=== PATIENT | female | born 1950 | race Caucasian/White ===

== ENCOUNTER → 2017-02-09 | Outpatient (CLI) | payer MEDICARE ==
[~2017-02-09] MED LIST: ACHYD1T PO; ALLP100T PO; CALC-80 PO; DOCU100T7 PO; FA/M1TAB29 PO; FISH1CAP15 PO; LISI20TA PO; LVT.088T PO; NAPR-710 PO; NAPR220T29 PO; OXYB5TAB9 PO; PRAV40TA PO; SPIR25TA3 PO; TRIM100T7 PO
== END ==
DX: Z12.31 Encounter for screening mammogram for malignant neoplasm of breast (principal)

== ENCOUNTER → 2017-10-31 | Outpatient (CLI) | payer MEDICARE ==
--- NOTE | 2017-10-31 14:28 | Diagnostic Imaging Report ---
EXAMINATION: Left hip at 1012h. INDICATION: Hip pain AP and lateral views were obtained. There are no prior studies available for comparison. There is no fracture, dislocation or acute bony abnormality evident. There is mild degenerative disease of the hip joint. The soft tissues are unremarkable. IMPRESSION: There is no evidence for an acute bony abnormality. Dictated by: Dictated on workstation # [id number]
--- NOTE | 2017-10-31 18:34 | Diagnostic Imaging Report ---
EXAMINATION: Lumbar spine. INDICATION: Left hip pain. AP, lateral, and spot lateral views were obtained. There are no prior studies available for comparison. FINDINGS: The lateral view does show a grade 1 spondylolisthesis of L4 with respect to L5. There is also mild narrowing of the disc space at L4-5. The alignment of the other vertebral bodies is within normal limits. The other intervertebral spaces are also fairly well maintained. There is no fracture or acute bony abnormality identified. There is no sign of a paraspinal mass. There is mild symmetrical sclerosis of the sacroiliac joints. IMPRESSION: 1. There is no evidence for an acute bony abnormality. 2. There is a grade 1 spondylolisthesis of L4 with respect to L5, and there is moderate narrowing of the disc space at the L4-5 level. 3. If there is clinical concern regarding spinal stenosis or nerve root encroachment, then MRI would be recommended for further evaluation. Dictated by: Dictated on workstation # [id number]
== END ==
LOC: RAD 09:38
PROVIDERS: ATTEND Family Medicine
DX: M48.061 Spinal stenosis, lumbar region without neurogenic claudication (principal); M43.16 Spondylolisthesis, lumbar region
CPT/HCPCS: 72100; 73502

== ENCOUNTER → 2017-11-28 | Outpatient (CLI) | payer MEDICARE ==
--- NOTE | 2017-11-28 17:24 | Diagnostic Imaging Report ---
PROCEDURE: MRI lumbar spine. TECHNIQUE: Multiplanar, multisequence MRI of the lumbar spine was performed without contrast. INDICATION: Left hip pain and low back pain. No prior MRI studies are available for comparison. FINDINGS: Curvature of the lumbar spine is normal. There is mild anterolisthesis of L4 on L5. The vertebral body heights are maintained. No acute compression fracture is seen. No geographic marrow lesion is identified. There is generalized degenerative disc disease and desiccation. The conus is unremarkable at the L1 level. L1-L2: No central canal or neuroforaminal stenosis is identified. L2-L3: Minimal ligamentous thickening is present but no central canal or neuroforaminal stenosis is identified. L3-L4: Minimal ligamentous thickening and facet changes are noted but no central canal or neuroforamina stenosis is identified. L4-L5: There are hypertrophic facet changes. There is mild broad-based disc/osteophyte complex flattening the ventral thecal sac. Central canal is widely patent. Neuroforamina are patent. L5-S1: There is a wide based left posterolateral disc bulge. This does produce significant narrowing of the left neuroforamen and likely impinging upon the left L5 nerve root. Very mild narrowing of the right neuroforamen by broad-based disc bulging is seen. The central canal is patent. Paraspinous tissues are unremarkable. IMPRESSION: Multilevel lumbar spondylosis described level by level above. There is a left far lateral broad-based disc bulge resulting in left neuroforaminal stenosis. No central canal stenosis or evidence of acute compression fracture is identified. Dictated by: Dictated on workstation # [id number]
== END ==
LOC: RAD 15:47
PROVIDERS: ATTEND Physician Assistant
DX: M48.07 Spinal stenosis, lumbosacral region (principal); M51.27 Other intervertebral disc displacement, lumbosacral region; M51.36 Other intervertebral disc degeneration, lumbar region; M47.816 Spondylosis without myelopathy or radiculopathy, lumbar region; M43.16 Spondylolisthesis, lumbar region
CPT/HCPCS: 72148

== ENCOUNTER → 2018-03-16 | Outpatient (CLI) | payer MEDICARE ==
--- NOTE | 2018-03-19 09:02 | Diagnostic Imaging Report ---
Indication: Routine screening. Comparison is made to prior mammogram of 02/09/2017 and 10/22/2015. 2-D and 3-D bilateral screening mammography was performed with CAD. Both breasts remain heterogeneously dense, limiting the sensitivity of mammography. Benign nodules in both breasts are again noted and appear stable. No new mass or malignant-appearing micro-ossifications are seen. There are benign calcifications present. The axilla is unremarkable. Impression: BI-RADS category 2 No mammographic features suspicious for malignancy are identified. ACR BI-RADS Category 2: Benign findings. Result letter will be mailed to the patient. Note: At least 10% of breast cancer is not imaged by mammography. Dictated by: Dictated on workstation # [id number]
== END ==
LOC: RAD 11:18
PROVIDERS: ATTEND Family Medicine
DX: Z12.31 Encounter for screening mammogram for malignant neoplasm of breast (principal)
CPT/HCPCS: 77067

== ENCOUNTER → 2021-06-18 | Outpatient (CLI) | payer MEDICARE ==
--- NOTE | 2021-06-18 16:24 | Diagnostic Imaging Report ---
INDICATION: Screening. EXAMINATION: Digital mammogram bilateral screening. 3D tomographic images were obtained and reviewed. The current study was also evaluated with a Computer Aided Detection (CAD) system. COMPARISON: This study was compared to the prior exams of 04/01/2020, 03/22/2019 and 03/16/2018. At this time there are no current complaints. FINDINGS: The fibroglandular tissue in both breasts is heterogeneously dense. This does limit the sensitivity of this exam. As noted on the prior exam there are multiple small rounded asymmetries in both breasts, particularly the left breast. These findings seem stable when compared to the prior exam and consequently most likely benign. On the SVC view there is a suggestion of an area of architectural distortion in the lateral aspect of the left breast at posterior depth. This finding is not as conspicuous on the tomographic images and cannot be identified with certainty on the MLO view although it may be in the superior half of the breast. By history, patient has had a previous cyst aspiration of the left breast and it is possible that this finding could be secondary to scar formation from that procedure. Even so, the possibility of an occult malignancy should also be considered. I would recommend that a compression views of this area be obtained in the XCC projection for further study as well as a true lateral view. Ultrasound of the left breast should also be performed. The right breast is unchanged. IMPRESSION: Additional mammographic views and ultrasound of the left breast would be recommended for further study. ACR BI-RADS Category 0: Incomplete. (Needs additional imaging evaluation). Result letter will be mailed to the patient. Note: At least 10% of breast cancer is not imaged by mammography. Dictated on workstation # [id number]
== END ==
LOC: RAD 09:45
PROVIDERS: ATTEND Family Medicine
DX: Z12.31 Encounter for screening mammogram for malignant neoplasm of breast (principal)
CPT/HCPCS: 77063; 77067

== ENCOUNTER → 2021-07-01 | Outpatient (CLI) | payer MEDICARE ==
--- NOTE | 2021-07-01 10:00 | Diagnostic Imaging Report ---
INDICATION: Questionable architectural distortion of the left breast. Patient presents for additional views. COMPARISON is made with screening study from 06/18/2021. Unilateral left 2-D and 3-D diagnostic mammography was performed. This includes spot compression exaggerated CC as well as ML views. A conventional 90 degree lateral view was also performed. There is residual density in the upper outer left breast. No definite architectural distortion is identified with compression views but evaluation of this area with ultrasound is recommended. No suspicious calcifications are seen. IMPRESSION: BI-RADS Category 0 There is residual density in the upper outer left breast at posterior depth. Further evaluation with ultrasound is recommended and will be performed today. ACR BI-RADS Category 0: Incomplete. (Needs additional imaging evaluation). Result letter will be mailed to the patient. Note: At least 10% of breast cancer is not imaged by mammography. Dictated by: Dictated on workstation # [id number]
--- NOTE | 2021-07-01 15:57 | Diagnostic Imaging Report ---
INDICATION: Left breast questionable architectural distortion. CORRELATION is made with diagnostic mammogram earlier this same day and screening mammogram from 06/18/2021. Sonographic interrogation of the upper outer left breast was performed. There is a simple cyst at the 1:00-2:00 location in the left breast 6 cm from the nipple measuring 5 mm. There is a cluster of cysts at the 1:00 location, 8 cm from the nipple in aggregate measuring 5 mm x 6 mm x 4 mm. No concerning sonographic findings are seen. There is no mass to account for questionable architectural distortion noted mammographically. IMPRESSION: BI-RADS Category 2 No concerning sonographic findings are seen. The patient may return to routine annual screening mammography. ACR BI-RADS Category 2: Benign findings. Result letter will be mailed to the patient. Note: At least 10% of breast cancer is not imaged by mammography. Dictated by: Dictated on workstation # [id number]
== END ==
LOC: RAD 09:34
PROVIDERS: ATTEND Family Medicine
DX: R92.8 Other abnormal and inconclusive findings on diagnostic imaging of breast (principal)
CPT/HCPCS: 76642; 77065; G0279

== ENCOUNTER → 2021-11-04 | Outpatient (CLI) | payer MEDICARE ==
--- NOTE | 2021-11-04 11:04 | Diagnostic Imaging Report ---
EXAMINATION: Right humerus radiographs, 2 views, 3 images. COMPARISON: None. HISTORY: 71-year-old female, fall recently. Right shoulder and humerus pain. FINDINGS: There is irregularity of the contour of the posterior aspect of the humeral head on image 3 which is not seen on the dedicated right shoulder radiograph series. This potentially could reflect a mildly displaced fracture fragment. This appears likely to be osseous rather than calcific in attenuation. There is no otherwise identified potential acute fracture. IMPRESSION: Irregularity of the posterior aspect of the humeral head, not well seen on dedicated right shoulder radiographs. This potentially could reflect a mildly displaced fracture. CT of the right shoulder without contrast is recommended for further assessment. Dictated by: Dictated on workstation # [id number]
--- NOTE | 2021-11-04 11:05 | Diagnostic Imaging Report ---
EXAMINATION: Right shoulder radiographs, 3 views. COMPARISON: None. HISTORY: 71-year-old female, fall recently. Right shoulder and humerus pain. FINDINGS: The humeral head is normally positioned relative to the glenoid. The glenohumeral joint space appears well-maintained. There is no identified osteophyte formation or subchondral cystic change. The acromioclavicular joint is normally aligned. There are no acromioclavicular degenerative changes. Not well seen on this exam and better demonstrated on same-day radiographs of the right humerus, there does appear to be irregularity of the margin of the posterior aspect of the humeral head which may reflect a mildly displaced fracture. IMPRESSION: Findings questionable for a mildly displaced fracture of the posterior aspect of the humeral head, better seen on same day right humerus radiographs. CT right shoulder without contrast is recommended for further assessment. Dictated by: Dictated on workstation # [id number]
== END ==
LOC: RAD 09:41
PROVIDERS: ATTEND Family Medicine
DX: M25.511 Pain in right shoulder (principal); W19.XXXA Unspecified fall, initial encounter
CPT/HCPCS: 73030; 73060

== ENCOUNTER → 2021-11-10 | Outpatient (CLI) | payer MEDICARE ==
--- NOTE | 2021-11-10 13:00 | Diagnostic Imaging Report ---
PROCEDURE: CT right upper extremity without contrast. TECHNIQUE: Multiple contiguous axial images were obtained through the right upper extremity without the use of intravenous contrast. Sagittal and coronal reformations were then performed. Auto Exposure Controls were utilized during the CT exam to meet ALARA standards for radiation dose reduction. INDICATION: Fall with pain in the right shoulder. FINDINGS: Glenohumeral and acromioclavicular alignment are normal. There are glenohumeral joint degenerative changes with joint space narrowing. There are subchondral cysts within the glenoid. There is an acute-appearing fracture involving the proximal humerus. This appears to involve the greater tuberosity. The neck of the humerus is intact. No other fractures are identified. The scapula is intact. IMPRESSION: Greater tuberosity fracture of the proximal right humerus. No other significant abnormality is identified. Dictated by: Dictated on workstation # [id number]
== END ==
LOC: RAD 11:45
PROVIDERS: ATTEND Family Medicine
DX: S42.201A Unspecified fracture of upper end of right humerus, initial encounter for closed fracture (principal); W19.XXXA Unspecified fall, initial encounter
CPT/HCPCS: 73200

== ENCOUNTER → 2022-01-18 | Outpatient (RCR) | payer MEDICARE | END | disposition home or self-care (01) | PROVIDERS: ATTEND Nurse Practitioner Family | DX: S42.254D Nondisplaced fracture of greater tuberosity of right humerus, subsequent encounter for fracture with routine healing (principal); I10 Essential (primary) hypertension; X58.XXXD Exposure to other specified factors, subsequent encounter ==

== ENCOUNTER → 2022-02-17 | Outpatient (RCR) | payer MEDICARE | END | disposition home or self-care (01) | PROVIDERS: ATTEND Nurse Practitioner Family | DX: S42.254D Nondisplaced fracture of greater tuberosity of right humerus, subsequent encounter for fracture with routine healing (principal); I10 Essential (primary) hypertension; X58.XXXD Exposure to other specified factors, subsequent encounter ==

== ENCOUNTER 2022-03-18 09:04 | Outpatient (RCR) | payer MEDICARE | END 2022-03-20 | disposition home or self-care (01) | PROVIDERS: ATTEND Nurse Practitioner Family | DX: S42.254D Nondisplaced fracture of greater tuberosity of right humerus, subsequent encounter for fracture with routine healing (principal); I10 Essential (primary) hypertension; X58.XXXD Exposure to other specified factors, subsequent encounter ==

== ENCOUNTER 2022-04-06 09:25 | Outpatient (RCR) | payer MEDICARE | END 2022-04-20 | disposition home or self-care (01) | PROVIDERS: ATTEND Nurse Practitioner Family | DX: S42.254D Nondisplaced fracture of greater tuberosity of right humerus, subsequent encounter for fracture with routine healing (principal); I10 Essential (primary) hypertension; X58.XXXD Exposure to other specified factors, subsequent encounter ==

== ENCOUNTER → 2022-07-04 | Outpatient (CLI) | payer MEDICARE ==
--- NOTE | 2022-07-04 11:43 | Diagnostic Imaging Report ---
INDICATION: Routine screening. COMPARISON: 06/18/2021 and 04/01/2020. TECHNIQUE: 2D and 3D bilateral screening mammography was performed with CAD. FINDINGS: Both breasts are heterogeneously dense, limiting the sensitivity of mammography. Circumscribed masses throughout both breasts are noted, consistent with cysts. No spiculated mass or malignant-appearing microcalcifications are seen. There are occasional benign calcifications. The axillae are unremarkable. IMPRESSION: No mammographic features suspicious for malignancy are identified. ACR BI-RADS Category 2: Benign findings. Result letter will be mailed to the patient. Note: At least 10% of breast cancer is not imaged by mammography. Dictated by: Dictated on workstation # [id number]
== END ==
LOC: RAD 10:15
PROVIDERS: ATTEND Family Medicine
DX: Z12.31 Encounter for screening mammogram for malignant neoplasm of breast (principal)
CPT/HCPCS: 77063; 77067

== ENCOUNTER → 2022-11-14 | Outpatient (CLI) | payer MEDICARE ==
--- NOTE | 2022-11-14 17:39 | Diagnostic Imaging Report ---
CLINICAL HISTORY: Right hip pain. COMPARISON: None. TECHNIQUE: 2 views of the right hip. FINDINGS: There is no acute fracture or dislocation of the right hip. Alignment is anatomic. The imaged joint spaces are preserved. No focal osseous lesions. IMPRESSION: 1. No acute fracture or dislocation in the right hip. Dictated by: Dictated on workstation # [id number]
--- NOTE | 2022-11-14 17:40 | Diagnostic Imaging Report ---
EXAMINATION: Lumbosacral spine 2 or 3 views HISTORY: Back pain with right hip radiculopathy. COMPARISON: 10/31/2017. FINDINGS: There is no acute fracture or dislocation of the lumbar spine. Grade 1 anterolisthesis of L4 and L5 is seen. The vertebral body heights are well maintained. [id number] degenerative changes are present in the lumbar spine, with marginal osteophytes and facet hypertrophy. These are greatest at the L4-L5 and L5-S1 levels. The included soft tissues are unremarkable. IMPRESSION: 1. No acute fracture or dislocation in the lumbar spine. 2. Grade 1 anterolisthesis of L4 on L5, similar to the prior exam. Dictated by: Dictated on workstation # [id number]
== END ==
LOC: RAD 11:02
PROVIDERS: ATTEND Family Medicine
DX: M43.16 Spondylolisthesis, lumbar region (principal); M54.16 Radiculopathy, lumbar region; M25.551 Pain in right hip
CPT/HCPCS: 72100; 73502

== ENCOUNTER 2022-12-16 10:38 | Outpatient (RCR) | payer MEDICARE | END 2022-12-18 | disposition home or self-care (01) | PROVIDERS: ATTEND Family Medicine | DX: M54.16 Radiculopathy, lumbar region (principal); I10 Essential (primary) hypertension ==

== ENCOUNTER → 2023-01-18 | Outpatient (RCR) | payer MEDICARE | END | disposition home or self-care (01) | PROVIDERS: ATTEND Family Medicine | DX: M54.16 Radiculopathy, lumbar region (principal) ==

== ENCOUNTER 2023-01-20 11:10 | Outpatient (RCR) | payer MEDICARE | END 2023-01-20 12:16 | disposition home or self-care (01) | PROVIDERS: ATTEND Family Medicine | DX: M54.16 Radiculopathy, lumbar region (principal); M76.31 Iliotibial band syndrome, right leg; I10 Essential (primary) hypertension ==

== ENCOUNTER 2023-07-17 10:27 | Outpatient (RCR) | payer MEDICARE | END 2023-07-20 | disposition home or self-care (01) | PROVIDERS: ATTEND Nurse Practitioner | DX: M51.16 Intervertebral disc disorders with radiculopathy, lumbar region (principal); M48.062 Spinal stenosis, lumbar region with neurogenic claudication; M47.26 Other spondylosis with radiculopathy, lumbar region; M43.16 Spondylolisthesis, lumbar region; M51.27 Other intervertebral disc displacement, lumbosacral region; I10 Essential (primary) hypertension ==